=== PATIENT | female | born 1950 | race Caucasian/White ===

== ENCOUNTER → 2018-08-28 09:23 | Outpatient (CLI) | payer MEDICARE, MEDICAID, SELFPAY ==
[2018-08-28 09:53] LABS: Blood Urea Nitrogen 24 mg/dL (7-18); Creatinine,Serum 1.02 mg/dL (0.55-1.02); Estimated Glomerular Filt Rate 54 ml/min (>60); GFR (African American) 65 ML/MIN (>60)
== END ==
PROVIDERS: Visit Provider Internal Medicine Adolescent Medicine
DX: K86.89 Other specified diseases of pancreas (principal)
CPT/HCPCS: 36415; 74183; 82565; 84520; A9576

== ENCOUNTER → 2018-09-20 12:03 | Outpatient (CLI) | payer MEDICARE, MEDICAID, SELFPAY ==
[2018-09-20 15:35] LABS: Alanine Aminotransferase 31 U/L (12-78); Albumin Level 3.6 gm/dL (3.4-5.0); Albumin/Globulin Ratio 0.9 (1.1-1.8); Alkaline Phosphatase 99 U/L (46-116); Anion Gap 15.2 mEq/L (5-15); Aspartate Amino Transferase 17 U/L (15-37); Bilirubin,Total 0.5 mg/dL (0.2-1.0); Blood Urea Nitrogen 16 mg/dL (7-18); Calcium 9.3 mg/dL (8.5-10.1); Carbon Dioxide 29 mmol/L (21.0-32.0); Chloride 103 mmol/L (98-107); Creatinine,Serum 1.06 mg/dL (0.55-1.02); Estimated Glomerular Filt Rate 52 ml/min (>60); GFR (African American) 62 ML/MIN (>60); Globulin 3.9 gm/dl (1.3-3.2); Glucose 209 mg/dL (74-106); Potassium 4.2 mmoL/L (3.5-5.1); Sodium 143 mmol/L (136-145); Total Protein,Serum 7.5 gm/dL (6.4-8.2)
[2018-09-20 16:08] LABS: Basophils # 0.1 K/mm3 (0-0.2); Basophils % 0.5 % (0.1-2.0); Eosinophils # 0.2 K/mm3 (0.0-0.4); Eosinophils % 1.8 % (0.1-12.0); Hematocrit 43.6 % (37.0-47.0); Hemoglobin 13.5 g/dL (12.2-16.2); Lymphocytes # 2.6 K/mm3 (0.7-4.5); Lymphocytes % 23.4 % (10-50); Mean Corpuscular Hemoglobin 26.5 pg (27.0-31.2); Mean Corpuscular Volume 85.5 fl (81-99); Mean Platelet Volume 7.4 fl (7.4-10.4); Monocytes # 0.5 K/mm3 (0.1-1.0); Monocytes % 4.9 % (1.7-9.3); Neutrophils # 7.7 K/mm3 (1.8-7.8); Neutrophils % 69.6 % (37.0-80.0); Platelet Count 281 K/mm3 (142-424); Red Blood Count 5.11 M/mm3 (4.20-5.40); Red Cell Distribution Width 13.9 % (11.5-17.5); White Blood Count 11.1 K/mm3 (4.8-10.8)
== END ==
PROVIDERS: PCP Nurse Practitioner Family; Visit Provider Nurse Practitioner Family
DX: E11.9 Type 2 diabetes mellitus without complications (principal); I10 Essential (primary) hypertension; K92.1 Melena
CPT/HCPCS: 36415; 80053; 85025

== ENCOUNTER → 2019-01-15 09:50 | Outpatient (CLI) | payer MEDICARE, MEDICAID, SELFPAY ==
[2019-01-15 14:32] LABS: Basophils # 0.1 K/mm3 (0-0.2); Basophils % 0.7 % (0.1-2.0); Eosinophils # 0.3 K/mm3 (0.0-0.4); Eosinophils % 3.1 % (0.1-12.0); Hematocrit 45.3 % (37.0-47.0); Hemoglobin 13.7 g/dL (12.2-16.2); Lymphocytes # 2.5 K/mm3 (0.7-4.5); Lymphocytes % 28.2 % (10-50); Mean Corpuscular HGB Conc 30.4 g/dL (31.8-35.4); Mean Corpuscular Hemoglobin 26.4 pg (27.0-31.2); Monocytes # 0.6 K/mm3 (0.1-1.0); Monocytes % 6.9 % (1.7-9.3); Neutrophils # 5.5 K/mm3 (1.8-7.8); Neutrophils % 61.2 % (37.0-80.0); Platelet Count 273 K/mm3 (142-424); Red Blood Count 5.21 M/mm3 (4.20-5.40); Red Cell Distribution Width 14.2 % (11.5-17.5)
[2019-01-15 14:34] LABS: Hemoglobin A1C 8.1 % (0.0-7.0)
[2019-01-15 14:44] LABS: Alanine Aminotransferase 19 U/L (12-78); Albumin Level 3.5 gm/dL (3.4-5.0); Alkaline Phosphatase 79 U/L (46-116); Anion Gap 15.5 mEq/L (5-15); Aspartate Amino Transferase 19 U/L (15-37); Bilirubin,Total 0.4 mg/dL (0.2-1.0); Blood Urea Nitrogen 18 mg/dL (7-18); Calcium 8.9 mg/dL (8.5-10.1); Carbon Dioxide 27 mmol/L (21.0-32.0); Chloride 104 mmol/L (98-107); Creatinine,Serum 1.05 mg/dL (0.55-1.02); Estimated Glomerular Filt Rate 52 ml/min (>60); GFR (African American) 63 ML/MIN (>60); Globulin 3.6 gm/dl (1.3-3.2); Glucose 200 mg/dL (74-106); Potassium 4.5 mmoL/L (3.5-5.1); Sodium 142 mmol/L (136-145); Thyroid Stimulating Hormone 4.52 uIU/ml (0.358-3.740); Total Protein,Serum 7.1 gm/dL (6.4-8.2)
[2019-01-16 14:11] LABS: Vitamin B12 390 pg/mL (232-1245); Vitamin D 25 Hydroxy 18.6 ng/mL (30.0-100.0)
== END ==
PROVIDERS: PCP Nurse Practitioner Family; Visit Provider Nurse Practitioner Family
DX: E11.9 Type 2 diabetes mellitus without complications (principal); R53.83 Other fatigue
CPT/HCPCS: 36415; 80053; 82607; 82652; 83036; 84443; 85025

== ENCOUNTER 2020-01-29 14:00 | Outpatient (RCR) | payer MEDICARE, SELFPAY ==
--- NOTE | 2019-12-24 16:37 | HMH.PTOPEV ---
PT Outpatient Evaluation Rehab PT Outpatient Evaluation Start: 12/24/19 16:09 Freq: Status: Active Protocol: Document 12/24/19 16:09 TORREYAna Luisa (Rec: 12/24/19 16:36 PDESEROUX [id number]) Electronically Signed By Tani Concepcion, PT 12/24/19 16:09 Outpatient Therapy Subjective History Subjective History Pt. is a 69 year old female who presents to Outpatient PT clinic w/ complaints of subacute and constant LLE P! of insidious onset at the end of November 2019. Pt. reports symptoms were intermittent then, but have been constant the past 2 wks. Pt. describes the symptoms as knot-like that worsen w/ standing for a prolonged period of time. Pt. reports symptom relief w/ resting and movement. Pt. reports she is currently ambulating w/ a FWW b/c she is afraid she may fall d/t a misplaced step. Recent diagnostic imaging negative per pt. report. Pt. denies having injections for current pathology. Pt. RTMD in 2 months from 12/16/19 per report. PMH includes CVA 5 years ago, suffering from the 2nd stroke right now, and Type II Diabetes. Current medications include Aleve the provides symptom relief. Chief Complaint Pain,Spasms,Gives out/Unstable Symptom Type Ache,Other Symptoms Relieved By Rest/Positioning,Activity Symptoms Aggravated By Standing,Bending/Stooping Prior Functional Limitations None Current Functional Limitations Housework,Standing,Walking, Stairs,Balance,Bending/ Stooping Symptom Description Constant and Continuous Level of pain today (0-10) 2 Pain scale - at its best (0-10) 1 Pain scale - at its worst (0-10) 6 Lumbopelvic Eval Posture Thoracic Spine Posture Standing Position Increased Kyphosis Lumbar Spine Posture Standing Position Flattened Assistive device Assistive Devices Rolling / Wheeled Walker Gait Observation General Gait Pattern Observation Antalgic Gait,Decrease Weight
== END 2020-02-13 12:45 | disposition home or self-care (01) ==
LOC: PT.CARL 14:00
PROVIDERS: PCP Nurse Practitioner Family; Visit Provider Internal Medicine Adolescent Medicine
DX: I69.30 Unspecified sequelae of cerebral infarction (principal); M62.838 Other muscle spasm
CPT/HCPCS: 97110; 97140; 97163

== ENCOUNTER → 2020-05-25 09:53 | Outpatient (CLI) | payer MEDICARE, SELFPAY ==
[2020-05-25 13:57] LABS: Basophils # 0.1 K/mm3 (0-0.2); Basophils % 0.7 % (0.1-2.0); Eosinophils # 0.3 K/mm3 (0.0-0.4); Eosinophils % 2.4 % (0.1-12.0); Hematocrit 41.7 % (37.0-47.0); Hemoglobin 13.9 g/dL (12.2-16.2); Lymphocytes # 2.9 K/mm3 (0.7-4.5); Lymphocytes % 24.4 % (10-50); Mean Corpuscular HGB Conc 33.2 g/dL (31.8-35.4); Mean Corpuscular Hemoglobin 28.4 pg (27.0-31.2); Mean Corpuscular Volume 85.4 fl (81-99); Mean Platelet Volume 8.3 fl (7.4-10.4); Monocytes # 0.5 K/mm3 (0.1-1.0); Monocytes % 4.5 % (1.7-9.3); Platelet Count 280 K/mm3 (142-424); Red Blood Count 4.89 M/mm3 (4.20-5.40); Red Cell Distribution Width 13.3 % (11.5-17.5); White Blood Count 11.8 K/mm3 (4.8-10.8)
[2020-05-25 14:08] LABS: Alanine Aminotransferase 16 U/L (12-78); Albumin Level 3.8 g/dl (3.5-5.0); Albumin/Globulin Ratio 1.3 (1.1-1.8); Alkaline Phosphatase 94 U/L (38-126); Anion Gap 13.7 mEq/L (5-15); Aspartate Amino Transferase 23 U/L (14-36); Bilirubin,Total 0.3 mg/dl (0.2-1.3); Blood Urea Nitrogen 13 mg/dl (7-17); Calcium 9.2 mg/dl (8.4-10.2); Carbon Dioxide 27 mmol/L (22.0-30.0); Chloride 102 mmol/L (98-107); Chol/HDL Ratio 4.5 (1-3.5); Cholesterol 179 mg/dl (140-200); Estimated Glomerular Filt Rate 62 ml/min (>60); GFR (African American) 75 ML/MIN (>60); Glucose 236 mg/dl (74-100); HDL Cholesterol 40 mg/dl (40-60); Potassium 4.7 mmoL/L (3.5-5.1); Sodium 138 mmol/L (136-145); Total Protein,Serum 6.8 g/dl (6.3-8.2); Triglycerides 220 mg/dl (30-150); VLDL Cholesterol 44 mg/dL (0-40)
[2020-05-25 14:53] LABS: Hemoglobin A1C 9.4 % (4.0-6.0)
== END ==
PROVIDERS: Visit Provider Internal Medicine Adolescent Medicine
DX: E11.9 Type 2 diabetes mellitus without complications (principal); I10 Essential (primary) hypertension
CPT/HCPCS: 36415; 80053; 80061; 83036; 85025

== ENCOUNTER 2020-09-08 11:34 | Observation (INO) | payer MEDICARE, SELFPAY ==
[2020-09-08] VITALS (9 sets, daily range): BP systolic 96–136; BP diastolic 63–86; PULSE 83–97; RESP 16–18; TEMP 36.6–37.1; O2SAT 92–98; BMI 27.4; BMI 25.5
--- NOTE | 2020-09-08 11:55 | XR_ITS ---
PROCEDURE: XR HIP LT 2-3V W/PELVIS CLINICAL INDICATION: hip pain COMPARISON: CT CT ABD/PELVIS W IV AND ORAL CO from 08/08/2018 FINDINGS: No fracture or dislocation. No lytic or blastic change. Minimal osteoarthritic changes are present involving the hips and there is mild diffuse vascular calcification. IMPRESSION: Minimal osteoarthritic change of the hips Dictated by: Bari Cote MD 09/08/2020 13:28 Bari Cote MD in OV 09/08/2020 13:28
[2020-09-08 12:05] LABS: Chloride 105 mmol/L (98-107); Potassium 4.3 mmoL/L (3.5-5.1); Sodium 142 mmol/L (136-145)
[2020-09-08 12:07] LABS: Alanine Aminotransferase 16 U/L (12-78); Aspartate Amino Transferase 26 U/L (14-36); Blood Urea Nitrogen 17 mg/dl (7-17); Creatinine Clearance Estimated 60 mL/min (50-200); Estimated Glomerular Filt Rate 55 ml/min (>60); GFR (African American) 66 ML/MIN (>60)
[2020-09-08 12:08] LABS: Albumin/Globulin Ratio 1.2 (1.1-1.8); Alkaline Phosphatase 89 U/L (38-126); Anion Gap 11.3 mEq/L (5-15); Bilirubin,Total 0.5 mg/dl (0.2-1.3); Calcium 9.3 mg/dl (8.4-10.2); Carbon Dioxide 30 mmol/L (22.0-30.0); Globulin 3.3 g/dL (1.3-3.2); Glucose 101 mg/dl (74-100); Total Protein,Serum 7.3 g/dl (6.3-8.2)
[2020-09-08 13:21] LABS: Basophils # 0.1 K/mm3 (0-0.2); Basophils % 0.7 % (0.1-2.0); Eosinophils # 0.2 K/mm3 (0.0-0.4); Eosinophils % 1.8 % (0.1-12.0); Hemoglobin 14.7 g/dL (12.2-16.2); Lymphocytes % 27.4 % (10-50); Mean Corpuscular HGB Conc 31.3 g/dL (31.8-35.4); Mean Corpuscular Hemoglobin 26.9 pg (27.0-31.2); Mean Corpuscular Volume 85.9 fl (81-99); Mean Platelet Volume 7.6 fl (7.4-10.4); Monocytes # 0.6 K/mm3 (0.1-1.0); Monocytes % 5.8 % (1.7-9.3); Neutrophils % 64.3 % (37.0-80.0); Platelet Count 264 K/mm3 (142-424); Red Blood Count 5.47 M/mm3 (4.20-5.40); Red Cell Distribution Width 13.3 % (11.5-17.5)
--- NOTE | 2020-09-08 15:14 | PC.NURSE ---
paged dr Weaver
--- NOTE | 2020-09-08 15:55 | PC.NURSE ---
Dr Weaver returned call
[2020-09-08 16:27] LABS: Microscopic, Urine URINE MICROSCOPIC (MICROSCOPIC)
[2020-09-08 16:29] LABS: Appearance,Urine SL CLOUDY (Clear); Blood, Urine Negative (Negative); Color,Urine YELLOW (Yellow); Glucose,Urine (UA) Negative (Negative); Ketones,Urine Negative (Negative); Leukocyte Esterase,Urine Negative (Negative); Nitrate,Urine Negative (Negative); Protein,Urine Negative (Negative); Specific Gravity, Urine >= 1.030 (1.005-1.030)
[2020-09-08 16:37] LABS: Bilirubin,Urine 1+ (Negative)
[2020-09-08 16:38] LABS: Hyaline Casts,Urine Occasional #/lpf (0); Squamous Epithelial Cell,Urine Occasional #/hpf (0-5)
--- NOTE | 2020-09-08 16:45 | PC.NURSE ---
ATTEMPTED TO GET PT OUT OF TO AMBULATE WITH WALKER. PT TOOK APPROX 10 STEPS USING WALKER AND WITH ASSIST OF 2 STAFF. PT WAS UNABLE TO GINA WALKING. PT PLACE BACK IN STRETCHER. AWARE
--- NOTE | 2020-09-08 16:48 | PC.NURSE ---
Dr Weaver paged again
--- NOTE | 2020-09-08 17:11 | PC.NURSE ---
bed assignment requested, room 203. all staff notified
[2020-09-08 17:44] LABS: Coronavirus 19, PCR Not Detected (NotDetected); Influenza A, PCR Not Detected (NotDetected); Influenza B, PCR Not Detected (NotDetected)
--- NOTE | 2020-09-08 17:44 | PC.NURSE ---
spoke with pt at this time, notified him that pt will be admitted. Per boiling house hand request I asked pt to be please be here at the hospital at 8 am in the morning to speak the doctors during rounds r/t to making plan of care for pt.
--- NOTE | 2020-09-08 17:48 | HMH.EDGENADL ---
ED Disposition Clinical Impression: Physical debility Failure to thrive Qualifiers: Failure to thrive age range: in adult Qualified Code(s): R62.7 - Adult failure to thrive Disposition: Still a Patient Condition on Discharge: Fair - Critical Care Critical Care Time: No Attestation: On 09/08/20, the high probability of a clinically significant, sudden or life threatening deterioration of the following system(s) required my full and direct attention, intervention and personal management. The time I documented below is in addition to time spent performing reported procedures but includes the following listed in this critical care notation. Medical Decision Making - Medical Records Medical records reviewed: Yes: I reviewed the patient's medical records. - Marlon Inquiry Pt receiving controlled substance: No Vital Signs: 09/08/20 11:35 09/08/20 13:30 09/08/20 14:00 Temperature 98 F Temperature Source Oral Pulse Rate 83 89 Pulse Rate [Radial] 84 Respiratory Rate 16 16 18 Blood Pressure 96/66 L 102/68 L Blood Pressure [Right Arm] 108/63 L Blood Pressure Mean [Right Arm] 78 Blood Pressure Position [Right Arm] Sitting 02 Sat by Pulse Oximetry 98 95 93 L Oxygen Delivery Method Room Air 09/08/20 14:30 09/08/20 15:00 Temperature Temperature Source Pulse Rate 94 H 96 H Pulse Rate [Radial] Respiratory Rate 18 18 Blood Pressure 129/86 127/86 Blood Pressure [Right Arm] Blood Pressure Mean [Right Arm] Blood Pressure Position [Right Arm] 02 Sat by Pulse Oximetry 94 L 94 L Oxygen Delivery Method - Lab Data Lab Results 09/08/20 11:46: WBC 11.0 H, RBC 5.47 H, Hgb 14.7, Hct 47.0, MCV 85.9, MCH 26.9 L, MCHC 31.3 L, RDW 13.3, Plt Count 264, MPV 7.6, Neut % (Auto) 64.3, Lymph % (Auto) 27.4, [place] % (Auto) 5.8, Eos % (Auto) 1.8, Baso % (Auto) 0.7, Neut # (Auto) 7.0, Lymph # (Auto) 3.0, [place] # (Auto) 0.6, Eos # (Auto) 0.2, Baso # (Auto) 0.1 09/08/20 11:46: Sodium 142, Potassium 4.3, Chloride 105, Carbon Dioxide 30, Anion Gap 11.3, BUN 17, Creatinine 1.00, Estimated Creat Clear 60, Estimated GFR 55 L, Est GFR ( Amer) 66, Glucose 101 H, Calcium 9.3, Total Bilirubin 0.5, AST 26, ALT 16, Alkaline Phosphatase 89, Total Protein 7.3, Albumin 4.0, Globulin 3.3 H, Albumin/Globulin Ratio 1.2 09/08/20 16:25: Urine Color Yellow, Urine Appearance Sl cloudy, Urine pH 5.0, Ur Specific [place] >= 1.030, Urine Protein Negative, Urine Glucose (UA) Negative, Urine Ketones Negative, Urine Blood Negative, Urine Nitrate Negative, Urine Bilirubin 1+ A, Urine Urobilinogen 1.0, Ur Leukocyte Esterase Negative, Urine RBC None, Urine WBC None, Ur Squamous Epith Cells Occasional, Urine Bacteria None, Hyaline Casts Occasional Result diagrams: 09/08/20 11:46 09/08/20 11:46 Orders (Tests/Meds): ED MEDICATIONS Generic Name Dose Route Start Last Admin Trade Name Freq PRN Reason Stop Dose Admin Acetaminophen 650 mg 09/08/20 17:58 Acetaminophen 325mg Tab PO 10/08/20 17:57 Q4HP PRN Fever or Mild Pain Docusate Sodium 100 mg 09/08/20 17:58 Docusate Sodium 100 Mg Capsule PO 10/08/20 17:57 DAILY [facility] Enoxaparin Sodium 40 mg 09/08/20 17:58 Enoxaparin 40mg/0.4ml Syringe SQ 10/08/20 17:57 DAILY [facility] Insulin Human Lispro 0 unit 09/08/20 21:00 Humalog 100 Units/Ml 3ml Vial (Ssi) SQ 10/08/20 20:59 ACHS [facility] Protocol Ondansetron HCl 4 mg 09/08/20 17:58 Ondansetron 4mg/2ml Vial IV 10/08/20 17:57 Q8HP PRN Nausea Pantoprazole Sodium 40 mg 09/08/20 17:58 Pantoprazole 40mg Tablet PO 10/08/20 17:57 DAILY [facility] Discontinued Medications Generic Name Dose Route Start Last Admin Trade Name Freq PRN Reason Stop Dose Admin Belladonna Alkaloids 60 ml 09/08/20 12:12 09/08/20 12:35 Gi Cocktail 60ml Udc PO 09/08/20 12:13 60 ml ONCE ONE Administration ORDERS Category Date Time Status Basic Metabolic Panel AMLAB Lab 09/09/20 06:0
--- NOTE | 2020-09-08 17:49 | P.CONPHA_ITS ---
[facility] Pharmacy VTE Monitoring - Patient Demographics Admission date: 09/08/20 Report Date: 09/08/20 Time: 17:49 Allergies/Adverse Reactions: Patient Allergies No Known Allergies Allergy (Verified 09/08/20 11:36) Height: 1.63 m Weight: 72.575 kg - VTE Risk Labs: VTE Related Lab Results Hgb 14.7 g/dL (12.2-16.2) 09/08/20 11:46 Hct 47.0 % (37.0-47.0) 09/08/20 11:46 Plt Count 264 K/mm3 (142-424) 09/08/20 11:46 BUN 17 mg/dl (7-17) 09/08/20 11:46 Creatinine 1.00 mg/dl (0.52-1.04) 09/08/20 11:46 Estimated Creat Clear 60 mL/min (50-200) 09/08/20 11:46 Clinical Trial Participant: No - Prophylaxis VTE Prophylaxis Ordered?: Yes Types of VTE Prophylaxis: TEDS Knee High
--- NOTE | 2020-09-08 17:53 | HMH.PHAINT ---
HOME MEDICATION VERIFICATION COMPLETED USING LIST FROM [employer] JENNI
--- NOTE | 2020-09-08 18:43 | PC.NURSE ---
REPORT CALLED TO FLOOR
[2020-09-08 20:07] LABS: POC Glucose,Bedside 103 (70-110)
--- NOTE | 2020-09-09 03:25 | PC.NURSE ---
A&OX4. PT SLOW TO ANSWER QUESTIONS AND TALK. PT NOTCHED BLADE LOADER ARE EQUAL, ABLE TO FOLLOW COMMANDS WELL. PT HAS HAD NO C/O THUS FAR. HAS SLEPT T/O MAJORITY OF SHIFT. TOLERATING RA. VSS WILL CONTINUE TO MONITOR.
[2020-09-09 03:40] VITALS: BP 111/61; PULSE 90; RESP 16; TEMP 36.9; O2SAT 96
[2020-09-09 05:12] VITALS: BMI 25.0
[2020-09-09 06:55] LABS: Basophils # 0.1 K/mm3 (0-0.2); Basophils % 0.5 % (0.1-2.0); Eosinophils # 0.2 K/mm3 (0.0-0.4); Eosinophils % 1.4 % (0.1-12.0); Hematocrit 44.4 % (37.0-47.0); Hemoglobin 14.4 g/dL (12.2-16.2); Lymphocytes % 25.8 % (10-50); Mean Corpuscular HGB Conc 32.5 g/dL (31.8-35.4); Mean Corpuscular Volume 83.1 fl (81-99); Mean Platelet Volume 8.4 fl (7.4-10.4); Monocytes # 0.8 K/mm3 (0.1-1.0); Monocytes % 6.6 % (1.7-9.3); Neutrophils # 7.7 K/mm3 (1.8-7.8); Neutrophils % 65.8 % (37.0-80.0); Platelet Count 240 K/mm3 (142-424); Red Blood Count 5.34 M/mm3 (4.20-5.40); Red Cell Distribution Width 14.1 % (11.5-17.5); White Blood Count 11.7 K/mm3 (4.8-10.8)
[2020-09-09 07:12] LABS: Anion Gap 12.2 mEq/L (5-15); Blood Urea Nitrogen 22 mg/dl (7-17); Calcium 8.5 mg/dl (8.4-10.2); Carbon Dioxide 28 mmol/L (22.0-30.0); Chloride 104 mmol/L (98-107); Creatinine Clearance Estimated 56 mL/min (50-200); Estimated Glomerular Filt Rate 62 ml/min (>60); GFR (African American) 75 ML/MIN (>60); Glucose 90 mg/dl (74-100); Potassium 4.2 mmoL/L (3.5-5.1); Sodium 140 mmol/L (136-145)
--- NOTE | 2020-09-09 07:25 | HMH.HP ---
*Admission Date: 09/08/20 *Chief complaint: Inability to walk/functional decline *History of present illness: 70-year-old white female with some psychiatric issues including anxiety and depression, who lives with her in [facility], having recently migrated to [place] from [place]. They have had some ongoing issues with functional decline problems and she has been able to walk over the past several weeks, has been increasingly frustrated with her inability to care for self at home and brought her to the emergency department last night. He left the emergency department, and unable to find significant help/home health/disposition for her and she was admitted to hospital overnight for observation and probable placement in a skilled care facility. She reports this morning that she feels weak all over and that my does not want to take care of me anymore. [facility] History I have reviewed the patient's past medical history: Yes Medical History: Reports:: Cerebrovascular Accident, Diabetes Mellitus Type 2, Hyperlipidemia, Hypertension *Have you ever received a pneumonia vaccine?: No *Have you received a flu vaccine this season?: Yes - *Social History Last grade of school completed: Some college Smoking Status: Former smoker Alcohol Intake: never *Occupational Status:: retired Housing: house *Travel in the last 8 weeks: None Family Hx:: No significant family history Review of Systems - Review of Systems Review of systems:: pertinent systems reviewed and negative unless documented below Meds Home Medications Medication Instructions Recorded Confirmed Type Atorvastatin Calcium [Lipitor 40mg 40 mg PO HS 09/08/20 09/08/20 History Tab] Insulin Glargine,Hum.rec.anlog 47 units SQ 09/08/20 09/08/20 History [Lantus Solostar 100 Units/mL 3mL flexpen] Linagliptin [Tradjenta 5mg tablet] 5 mg PO DAILY 09/08/20 09/08/20 History Pantoprazole Sodium [Protonix 40mg 40 mg PO HS 09/08/20 09/08/20 History tablet] lisinopriL [Lisinopril] 10 mg PO DAILY 09/08/20 09/08/20 History ondansetron HCL [Zofran 4mg Tab*] 4 mg PO Q6HP PRN 09/08/20 09/08/20 History Allergies Allergy/AdvReac Type Severity Reaction Status Date / Time No Known Allergies Allergy Verified 09/08/20 11:36 Exam Vital signs and Labs for Last 24 Hours: Temp Pulse Resp BP Pulse Ox 98.5 F 90 16 111/61 96 09/09/20 03:40 09/09/20 03:40 09/09/20 03:40 09/09/20 03:40 09/09/20 03:40 Laboratory Results - last 24 hr 09/08/20 11:46: WBC 11.0 H, RBC 5.47 H, Hgb 14.7, Hct 47.0, MCV 85.9, MCH 26.9 L, MCHC 31.3 L, RDW 13.3, Plt Count 264, MPV 7.6, Neut % (Auto) 64.3, Lymph % (Auto) 27.4, [place] % (Auto) 5.8, Eos % (Auto) 1.8, Baso % (Auto) 0.7, Neut # (Auto) 7.0, Lymph # (Auto) 3.0, [place] # (Auto) 0.6, Eos # (Auto) 0.2, Baso # (Auto) 0.1 09/08/20 11:46: Sodium 142, Potassium 4.3, Chloride 105, Carbon Dioxide 30, Anion Gap 11.3, BUN 17, Creatinine 1.00, Estimated Creat Clear 60, Estimated GFR 55 L, Est GFR ( Amer) 66, Glucose 101 H, Calcium 9.3, Total Bilirubin 0.5, AST 26, ALT 16, Alkaline Phosphatase 89, Total Protein 7.3, Albumin 4.0, Globulin 3.3 H, Albumin/Globulin Ratio 1.2 09/08/20 16:25: Urine Color Yellow, Urine Appearance Sl cloudy, Urine pH 5.0, Ur Specific [place] >= 1.030, Urine Protein Negative, Urine Glucose (UA) Negative, Urine Ketones Negative, Urine Blood Negative, Urine Nitrate Negative, Urine Bilirubin 1+ A, Urine Urobilinogen 1.0, Ur Leukocyte Esterase Negative, Urine RBC None, Urine WBC None, Ur Squamous Epith Cells Occasional, Urine Bacteria None, Hyaline Casts Occasional 09/08/20 17:27: SARS-CoV-2 (PCR) Not detected, Influenza A Untype (PCR) Not detected, Influenza Type B (PCR) Not detected 09/08/20 19:56: POC Glucose 103 09/09/20 06:25: WBC 11.7 H, RBC 5.34, Hgb 14.4, Hct 44.4, MCV 83.1, MCH 27.0, MCHC 32.5, RDW 14.1, Plt Count 240, MPV 8.4, Neut % (Auto) 65.8, Lymph % (Auto) 25.8, [place] %
[2020-09-09 07:47] VITALS: BP 96/67; PULSE 91; RESP 16; TEMP 36.6; O2SAT 95
[2020-09-09 08:00] VITALS: PULSE 91; RESP 16; O2SAT 95
--- NOTE | 2020-09-09 10:11 | HMH.OTEV ---
OT Inpatient Evaluation Rehab OT IP Evaluation Start: 09/09/20 07:29 Freq: ONCE Status: Complete Protocol: Document 09/09/20 09:49 ALONDRA (Rec: 09/09/20 10:07 ALONDRA [id number]) Rehab OT IP Assessment Subjective History *Admission Date: 09/08/20 *Chief complaint: Inability to walk/functional decline *History of present illness: 70-year-old white female with some psychiatric issues including anxiety and depression, who lives with her in [facility], having recently migrated to [place] from [place]. They have had some ongoing issues with functional decline problems and she has been able to walk over the past several weeks, has been increasingly frustrated with her inability to care for self at home and brought her to the emergency department last night. He left the emergency department, and unable to find significant help/home health/ disposition for her and she was admitted to hospital overnight for observation and probable placement in a skilled care facility. She reports this morning that she feels weak all over and that my does not want to take care of me anymore. [facility] History I have reviewed the patient's past medical history: Yes Medical History: Reports:: Cerebrovascular Accident, Diabetes Mellitus Type 2, Hyperlipidemia, Hypertension Subjective I don't want to get in the chair. Its just not me. present during evaluation stating Patient has not ambulated within the past 2-3 weeks and he is unable to
--- NOTE | 2020-09-09 10:19 | SW/DCPLANNER ---
Addendum entered by Rosalinda Hernandes 09/10/20 11:40: PATIENT WAS NOT ABLE TO DISCHARGE LAST EVENING R/T INSURANCE ISSUES.. SHE WILL DISCHARGE THERE TODAY UNDER MEDICAID PENDING AND I HAVE NOTIFIED ...HE WILL MEET HER THERE TO ASSIST WITH PAPERWORK... Addendum entered by Rosalinda Hernandes 09/09/20 14:43: PATIENT ACCEPTED TO [facility] AND IS DISCHARGING THERE TODAY AND WILL GO THERE VIA AMBULANCE... Addendum entered by Rosalinda Hernandes 09/09/20 11:34: NO BEDS AVAILABLE AT [facility], THEY ARE NOT ACCEPTING PATIENTS AT THIS TIME... I SENT IT TO [facility] TO KEEP PATIENT CLOSE AND WAITING TO SEE IF THEY CAN ACCEPT HER... Original Note: MADE ROUNDS WITH DR FENG THIS MORNING ALONG WITH THE TEAM AND FELT THIS PATIENT NEEDS SHORT TERM REHAB PLACEMENT.. PATIENT PRESENTED IN WITH INABILITY TO WALK AND FUNCTIONAL DECLINE.. THEY RECENTLY MOVED TO [facility] FROM [place].. OT EVALUATION STATES SHE NEEDS PLACEMENT... I HAVE ATTEMPTED TO CALL THE BUT HAD TO LEAVE HIM A MESSAGE.. WAITING TO HEAR BACK TO WHERE HE WANTS ME TO LOOK FOR HER TO GO....
--- NOTE | 2020-09-09 10:58 | HMH.PTEV ---
Physical Therapy Evaluation Rehab PT IP Evaluation Start: 09/09/20 07:29 Freq: ONCE Status: Active Protocol: Document 09/09/20 10:50 RUPESHAVERY (Rec: 09/09/20 10:58 IHSANMARJAN [id number]) Subjective/History History History 70-year-old white female with some psychiatric issues including anxiety and depression, who lives with her in [facility], having recently migrated to [place] from [place]. They have had some ongoing issues with functional decline problems and she has been able to walk over the past several weeks Subjective Subjective Pt is alert to name, Bday, situation and year. Pt does not have any complaints of pain, but is slow w/ responses to questions. Pt reports at home she was ambulationg w/ walker and doing ADL's independently Rehab PT IP Eval Objective Appearance Patient Behavior Cooperative,Patient Baseline Patient Orientation Name,Birthday,Year,Situation Difficulty following instructions mild Speech Pattern Delayed,Soft-Spoken Ambulation Patient Able to Ambulate No Balance Ability to Arise Unable Sitting Balance Leans or slides in chair Standing Balance Unsteady Dynamic Sitting Balance Ability Poor Dynamic Standing Balance Ability Poor Transfers Bed Transfer Ability Contact Guard/Hand Hold Sit to Stand Bed Transfer Ability Maximum x 1 (75% assist) ROM RUE PT ROM Status ABN Abnormal ROM Comment Slouched posture in seating limits shoulder ROM LUE PT ROM Status ABN Abnormal ROM Comment Slouched posture in seating limits shoulder ROM RLE PT ROM Status WFL LLE PT ROM Status WFL Rehab PT IP prob,goals,plan Problems Date of Evaluation: 09/09/20 PT IP Problems Bed Mobility,Transfers,Gait, Balance,Self care,Safety Rehab Potential Rehab Potential Fair Equipment Needs Assistive Devices Rolling / Wheeled Walker Plan PT Intervention Plan Bed Mobility,Transfers,Gait, Balance,Self care,Safety,
[2020-09-09 11:12] LABS: POC Glucose,Bedside 174 (70-110)
[2020-09-09 12:20] VITALS: BMI 25.0
--- NOTE | 2020-09-09 14:02 | HMH.DCSUM ---
General - General Admission date:: 09/08/20 Discharge date: 09/09/20 HPI HPI: 70-year-old white female with some psychiatric issues including anxiety and depression, who lives with her in [facility], having recently migrated to [place] from [place]. They have had some ongoing issues with functional decline problems and she has been able to walk over the past several weeks, has been increasingly frustrated with her inability to care for self at home and brought her to the emergency department last night. He left the emergency department, and unable to find significant help/home health/disposition for her and she was admitted to hospital overnight for observation and probable placement in a skilled care facility. She reports this morning that she feels weak all over and that my does not want to take care of me anymore. Hospital Course Hospital Course: Patient was admitted, no metabolic derangements were found, x-ray testing was unremarkable. This morning patient continued to be very weak. PT and OT evaluated patient felt that she would be a good candidate for skilled rehab and possible long-term care placement. She was accepted in transfer at the [facility]. Please note that she will need PT/OT/speech therapy evaluation. Please note that she will need a CBC and BMP in 2 weeks. Objective Vital signs: Temp Pulse Resp BP Pulse Ox 97.9 F 91 H 16 96/67 L 95 09/09/20 07:47 09/09/20 08:00 09/09/20 08:00 09/09/20 07:47 09/09/20 08:00 no acute distress - *Routine HEENT Exam Head: Present: normocephalic Eye: Present: EOMI, PERRL ENT: Present: mucous membranes moist Comments: Does have fairly significant facial hirsutism - *Routine Neck Exam Present: supple - *Routine Respiratory Exam Present: CTA bilaterally - *Routine Cardiovascular Exam Present: RRR - *Routine Abdominal Exam Present: soft, normoactive bowel sounds. Absent: tenderness - *Routine Extremities Exam Absent: cyanosis, clubbing, edema - *Routine Skin Exam Present: warm. Absent: rash - *Routine Neurological Exam Present: alert Minimal left-sided weakness. Apparently sequela of old stroke. Oriented x2. Unusual personality affect with some tangential thinking. Does not seem to be afflicted with external hallucinatory activity however. - Detailed Eye Exam Eyelids: Bilateral normal inspection Results Labs on day of discharge: Labs from last 24 hours 09/09/20 09/09/20 09/09/20 10:59 06:25 06:25 WBC 11.7 H RBC 5.34 Hgb 14.4 Hct 44.4 MCV 83.1 MCH 27.0 MCHC 32.5 RDW 14.1 Plt Count 240 MPV 8.4 Neut % (Auto) 65.8 Lymph % (Auto) 25.8 [place] % (Auto) 6.6 Eos % (Auto) 1.4 Baso % (Auto) 0.5 Neut # (Auto) 7.7 Lymph # (Auto) 3.0 [place] # (Auto) 0.8 Eos # (Auto) 0.2 Baso # (Auto) 0.1 Sodium 140 Potassium 4.2 Chloride 104 Carbon Dioxide 28 Anion Gap 12.2 BUN 22 H D Creatinine 0.90 Estimated Creat Clear 56 Estimated GFR 62 Est GFR ( Amer) 75 Glucose 90 POC Glucose 174 H Calcium 8.5 Urine Color Urine Appearance Urine pH Ur Specific [place] Urine Protein Urine Glucose (UA) Urine Ketones Urine Blood Urine Nitrate Urine Bilirubin Urine Urobilinogen Ur Leukocyte Esterase Urine RBC Urine WBC Ur Squamous Epith Cells Urine Bacteria Hyaline Casts SARS-CoV-2 (PCR) Influenza A Untype (PCR) Influenza Type B (PCR) 09/08/20 09/08/20 09/08/20 19:56 17:27 16:25 WBC RBC Hgb Hct MCV MCH MCHC RDW Plt Count MPV Neut % (Auto) Lymph % (Auto) [place] % (Auto) Eos % (Auto) Baso % (Auto) Neut # (Auto) Lymph # (Auto) [place] # (Auto) Eos # (Auto) Baso # (Auto) Sodium Potassium Chloride Carbon Dioxide An
--- NOTE | 2020-09-09 15:28 | PC.NURSE ---
Pt has been pleasant and cooperative this shift. A&O X4. No complaints of pain. Pt is on room air with sats. >90%. Lungs CTA. No edema noted. Skin is C/D/I. Pt is tolerating a diabetic diet well and eats about 75% of all meals. Pt ambulates with assistance X1 and uses a walker. Pt worked with PT and sat up in the recliner for several hours. Abdomen is soft and non-tender. Pt is incontinent and uses a brief. Urine is clear and yellow. 1 large, brown, soft BM today. VSS. Call light within reach. Will continue to monitor.
[2020-09-09 16:00] VITALS: BP 104/78; PULSE 88; RESP 16; TEMP 36.8; O2SAT 94
[2020-09-09 17:06] LABS: POC Glucose,Bedside 126 (70-110)
[2020-09-09 20:00] VITALS: BP 115/69; PULSE 86; RESP 16; TEMP 36.8; O2SAT 97
[2020-09-09 22:39] LABS: POC Glucose,Bedside 145 (70-110)
[2020-09-10 00:47] LABS: POC Glucose,Bedside 82 (70-110)
[2020-09-10 04:00] VITALS: BP 109/68; PULSE 81; RESP 16; TEMP 36.6; O2SAT 97
[2020-09-10 05:03] VITALS: BMI 25.0
--- NOTE | 2020-09-10 05:46 | PC.NURSE ---
Patient had an uneventful night; no s/s of acute distress noted at this time. Bed at lowest level for safety, call light within reach; will continue to monitor.
[2020-09-10 06:06] LABS: POC Glucose,Bedside 105 (70-110)
[2020-09-10 07:41] VITALS: BP 132/77; PULSE 79; RESP 19; TEMP 36.5; O2SAT 95
--- NOTE | 2020-09-10 07:50 | P.PN_ITS ---
Internal Medicine - PN: Subj *Date: 09/10/20 *Time: 07:50 Interval history: Patient was not able to be transferred yesterday because of insurance issues. This morning she has no changes in her condition. We are awaiting insurance clearance from residential for transfer for long-term care. Exam Vital signs and Labs for Last 24 Hours: Temp Pulse Resp BP Pulse Ox 97.7 F 79 19 132/77 95 09/10/20 07:41 09/10/20 07:41 09/10/20 07:41 09/10/20 07:41 09/10/20 07:41 Laboratory Results - last 24 hr 09/09/20 05:09: POC Glucose 82 09/09/20 10:59: POC Glucose 174 H 09/09/20 16:23: POC Glucose 126 H 09/09/20 21:34: POC Glucose 145 H 09/10/20 05:58: POC Glucose 105 I & O for Last 24 hours: Intake & Output 09/07/20 09/08/20 09/09/20 09/10/20 11:59 11:59 11:59 11:59 Intake Total 360 / 360 1080 / 1080 Balance 360 / 360 1080 / 1080 Weight 160 lb 150 lb 9 oz 150 lb Narrative: Alert, pleasant, talkative, significant tangential thinking. Eating well. Cardiopulmonary assessment unremarkable. Neurologic exam unchanged. Abdomen soft. Assessment and Plan (1) Diabetes type 2, controlled Status: Chronic Category: Medical Code(s): E11.9 - Type 2 diabetes mellitus without complications (2) Sequela, post-stroke Status: Chronic Category: Medical Code(s): I69.30 - Unspecified sequelae of cerebral infarction (3) Failure to thrive Status: Acute Qualifiers: Failure to thrive age range: in adult Qualified Code(s): R62.7 - Adult failure to thrive Category: Medical (4) Physical debility Status: Acute Category: Medical Code(s): R53.81 - Other malaise
[2020-09-10 08:00] VITALS: PULSE 79; RESP 19; O2SAT 95
[2020-09-10 11:58] LABS: POC Glucose,Bedside 147 (70-110)
== END 2020-09-10 13:16 ==
LOC: ER 11:39 → 2ND 17:54
PROVIDERS: Admitting Provider Internal Medicine Adolescent Medicine; Emergency Provider Student in an Organized Health Care Education/Training Program; PCP Internal Medicine Adolescent Medicine; Visit Provider Internal Medicine Adolescent Medicine
DX: R62.7 Adult failure to thrive (principal); E11.9 Type 2 diabetes mellitus without complications; Z79.4 Long term (current) use of insulin; Z20.822 Contact with and (suspected) exposure to COVID-19; Z79.899 Other long term (current) drug therapy; Z74.2 Need for assistance at home and no other household member able to render care; I69.354 Hemiplegia and hemiparesis following cerebral infarction affecting left non-dominant side
CPT/HCPCS: G0378; 73502; 80048; 80053; 81001; 82962; 85025; 97116; 97162; 97165; 97530; 99284; U0003

== ENCOUNTER 2021-08-14 10:35 | Emergency (ER) | payer MEDICARE, SELFPAY ==
[2021-08-14 10:36] VITALS: BP 166/75; PULSE 92; RESP 20; TEMP 36.8; O2SAT 98; BMI 28.3
[2021-08-14 10:50] LABS: POC Glucose,Bedside 204 (70-110)
--- NOTE | 2021-08-14 10:52 | [facility].EDGENADL ---
ED Disposition Clinical Impression: Encounter for medication refill Disposition: Home, Self-Care Condition on Discharge: Good Additional Instructions: Continue medications as previously instructed. You were given refills for Soliqua and needles, atorvastatin. Prescriptions: Atorvastatin Calcium [Lipitor 40mg Tab] 40 mg PO HS #90 tab Transmission Status: Sent to [facility] Insulin Glargine/Lixisenatide [Soliqua 100 Unit-33 Mcg/ml Pen] 45 units SQ DAILY #15 each Transmission Status: Sent to [facility] Pen Needle, Diabetic [Unifine Pentips Plus] 1 each MC DAILY #100 each Transmission Status: Sent to [facility] Referrals: Jordan Weaver MD [Primary Care Provider] - - Critical Care Critical Care Time: No Attestation: On , the high probability of a clinically significant, sudden or life threatening deterioration of the following system(s) required my full and direct attention, intervention and personal management. The time I documented below is in addition to time spent performing reported procedures but includes the following listed in this critical care notation. Medical Decision Making - Marlon Inquiry Pt receiving controlled substance: No Vital Signs: 08/14/21 10:36 Temperature 98.2 F Temperature Source Oral Pulse Rate [Radial] 92 H Respiratory Rate 20 Blood Pressure [Right Arm] 166/75 H Blood Pressure Mean [Right Arm] 105 Blood Pressure Position [Right Arm] Sitting 02 Sat by Pulse Oximetry 98 Oxygen Delivery Method Room Air - Lab Data Lab Results 08/14/21 10:43: POC Glucose 204 H Medical Decision Narrative: [facility] contacted. They state that the patient needs a refill on Soliqua and associated needles. She also needs a refill on Lipitor. She has an adequate number of refills of her lisinopril. General Adult HPI - General Chief complaint: Recheck/Abnormal Lab/Rx Stated complaint: elevated glucose Time Seen by Provider: 08/14/21 10:42 Mode of Arrival: Ambulatory Limitations: No Limitations Description of Symptoms (Recalled from ER Triage Doc. by RN): pt states out of insulin last used today. pt and caregiver state they have been calling dr weaver x3 days for refill but he has not returned calls or sent script to pharmacy. pt denies any c/o - History of Present Illness HPI narrative: Patient states there is nothing wrong with her but she has a problem with your type, doctors . She says that her primary care provider, Dr. Weaver, is leaving the practice and has left no affording medications. She has run out of her insulin today. She says they have been calling Dr. Weaver's office for the past 3 days to try and get a new prescription but have not received any return calls and nothing has been transmitted to the pharmacy for refills. states that she is on Soliqua 45 units/day. She was only able to use a partial dose this morning. He is uncertain whether her other medications have refills on them. She is also on lisinopril. Both she and her states that she is not currently ill, she just needs her medications refilled. - Related Data Home Medications Medication Instructions Recorded Confirmed Atorvastatin Calcium [Lipitor 40mg 40 mg PO HS 09/08/20 09/08/20 Tab] Insulin Glargine,Hum.rec.anlog 47 units SQ HS 09/08/20 09/08/20 [Lantus Solostar 100 Units/mL 3mL flexpen] Linagliptin [Tradjenta 5mg tablet] 5 mg PO DAILY 09/08/20 09/08/20 Pantoprazole Sodium [Protonix 40mg 40 mg PO HS 09/08/20 09/08/20 tablet] lisinopriL [Lisinopril] 10 mg PO DAILY 09/08/20 09/08/20 ondansetron HCL [Zofran 4mg Tab*] 4 mg PO Q6HP PRN 09/08/20 09/08/20 Previous Rx's Medication Instructions Recorded Atorvastatin Calcium [Lipitor 40mg 40 mg PO HS #90 tab 08/14/21 Tab] Insulin Glargine/Lixisenatide 45 units SQ DAILY #15 each 08/14/21 [Soliqua 100 Unit-33 Mcg/ml Pen] Pen Needle, Diabetic [Unifine 1 each MC DAILY #100 ea
[2021-08-14 11:13] VITALS: BP 159/74; PULSE 78; RESP 16; TEMP 36.6; O2SAT 98
== END 2021-08-14 11:32 | disposition home or self-care (01) ==
LOC: ER 11:07
PROVIDERS: Emergency Provider Emergency Medicine; PCP Internal Medicine Adolescent Medicine
DX: E11.9 Type 2 diabetes mellitus without complications (principal); Z76.0 Encounter for issue of repeat prescription; Z79.4 Long term (current) use of insulin; Z79.899 Other long term (current) drug therapy; E78.5 Hyperlipidemia, unspecified; I10 Essential (primary) hypertension; Z86.73 Personal history of transient ischemic attack (TIA), and cerebral infarction without residual deficits
CPT/HCPCS: 82962; 99283

== ENCOUNTER → 2022-01-12 15:15 | Outpatient (CLI) | payer MEDICARE, SELFPAY ==
[2022-01-12 19:33] LABS: Hemoglobin A1C 7.7 % (4.0-6.0)
== END ==
PROVIDERS: PCP Family Medicine; Visit Provider Family Medicine
DX: E11.9 Type 2 diabetes mellitus without complications (principal); Z79.4 Long term (current) use of insulin
CPT/HCPCS: 83036

== ENCOUNTER → 2022-04-12 23:15 | Outpatient (CLI) | payer MEDICARE, SELFPAY ==
[2022-04-12 17:46] LABS: Hemoglobin A1C 6.4 % (4.0-6.0)
[2022-04-12 17:48] LABS: Creatinine,Urine Random 186 mg/dL (Not Estab.)
[2022-04-12 17:51] LABS: Microalbumin/Creatinine Ratio 10.5
== END ==
PROVIDERS: PCP Family Medicine; Visit Provider Family Medicine
DX: E11.9 Type 2 diabetes mellitus without complications (principal); Z79.4 Long term (current) use of insulin
CPT/HCPCS: 82043; 82570; 83036

== ENCOUNTER → 2022-12-07 10:56 | Outpatient (CLI) | payer MEDICARE, SELFPAY ==
[2022-12-06 16:40] LABS: Basophils # 0.1 K/mm3 (0-0.2); Basophils % 0.5 % (0.1-2.0); Eosinophils # 0.2 K/mm3 (0.0-0.4); Eosinophils % 1.4 % (0.1-12.0); Hematocrit 41.7 % (37.0-47.0); Hemoglobin 14.1 g/dL (12.2-16.2); Lymphocytes # 2.5 K/mm3 (0.7-4.5); Lymphocytes % 21.7 % (10-50); Mean Corpuscular HGB Conc 33.8 g/dL (31.8-35.4); Mean Corpuscular Hemoglobin 30.7 pg (27.0-31.2); Mean Corpuscular Volume 90.8 fl (81-99); Mean Platelet Volume 9.5 fl (7.4-10.4); Monocytes # 0.9 K/mm3 (0.1-1.0); Monocytes % 7.4 % (1.7-9.3); Platelet Count 261 K/mm3 (142-424); Red Blood Count 4.59 M/mm3 (4.20-5.40); Red Cell Distribution Width 13.3 % (11.5-17.5); White Blood Count 11.5 K/mm3 (4.8-10.8)
[2022-12-06 16:44] LABS: Alanine Aminotransferase 37 U/L (12-78); Albumin Level 4.5 g/dl (3.5-5.0); Albumin/Globulin Ratio 1.7 (1.1-1.8); Alkaline Phosphatase 71 U/L (38-126); Anion Gap 20.7 mEq/L (5-15); Aspartate Amino Transferase 40 U/L (14-36); Bilirubin,Total 0.6 mg/dl (0.2-1.3); Blood Urea Nitrogen 14 mg/dl (7-17); Calcium 9.6 mg/dl (8.4-10.2); Carbon Dioxide 22 mmol/L (22.0-30.0); Chloride 97 mmol/L (98-107); Chol/HDL Ratio 2.8 (1-3.5); Cholesterol 125 mg/dl (140-200); Estimated Glomerular Filt Rate 71 ml/min (>60); GFR (African American) 85 ML/MIN (>60); Globulin 2.6 g/dL (1.3-3.2); Glucose 139 mg/dl (74-100); HDL Cholesterol 45 mg/dl (40-60); Potassium 4.7 mmoL/L (3.5-5.1); Sodium 135 mmol/L (136-145); Total Protein,Serum 7.1 g/dl (6.3-8.2); Triglycerides 170 mg/dl (30-150); VLDL Cholesterol 34 mg/dL (0-40)
[2022-12-06 16:55] LABS: Direct LDL Cholesterol 59.36 mg/dL (100-129)
[2022-12-06 17:03] LABS: Hemoglobin A1C 6.3 % (4.0-6.0)
[2022-12-06 17:15] LABS: Thyroid Stimulating Hormone 1.22 uIU/mL (0.465-4.68)
== END ==
PROVIDERS: PCP Family Medicine; Visit Provider Nurse Practitioner Family
DX: E11.9 Type 2 diabetes mellitus without complications (principal); E78.5 Hyperlipidemia, unspecified; I10 Essential (primary) hypertension; R62.7 Adult failure to thrive; Z79.84 Long term (current) use of oral hypoglycemic drugs; Z87.891 Personal history of nicotine dependence
CPT/HCPCS: 80053; 80061; 83036; 84443; 85025

== ENCOUNTER → 2023-01-02 16:00 | Outpatient (CLI) | payer MEDICARE, SELFPAY ==
[2023-01-02 17:08] LABS: Alanine Aminotransferase 29 U/L (12-78); Albumin Level 4.2 g/dl (3.5-5.0); Albumin/Globulin Ratio 1.6 (1.1-1.8); Alkaline Phosphatase 74 U/L (38-126); Anion Gap 17.2 mEq/L (5-15); Aspartate Amino Transferase 37 U/L (14-36); Bilirubin,Total 0.5 mg/dl (0.2-1.3); Blood Urea Nitrogen 18 mg/dl (7-17); Calcium 9.4 mg/dl (8.4-10.2); Carbon Dioxide 25 mmol/L (22.0-30.0); Chloride 103 mmol/L (98-107); Estimated Glomerular Filt Rate 62 ml/min (>60); GFR (African American) 74 ML/MIN (>60); Globulin 2.7 g/dL (1.3-3.2); Glucose 171 mg/dl (74-100); Potassium 5.2 mmoL/L (3.5-5.1); Sodium 140 mmol/L (136-145); Total Protein,Serum 6.9 g/dl (6.3-8.2)
[2023-01-02 17:16] LABS: Basophils # 0.1 K/mm3 (0-0.2); Basophils % 0.6 % (0.1-2.0); Eosinophils # 0.2 K/mm3 (0.0-0.4); Eosinophils % 1.7 % (0.1-12.0); Hematocrit 42.2 % (37.0-47.0); Hemoglobin 13.8 g/dL (12.2-16.2); Lymphocytes # 2.8 K/mm3 (0.7-4.5); Mean Corpuscular HGB Conc 32.8 g/dL (31.8-35.4); Mean Corpuscular Hemoglobin 29.8 pg (27.0-31.2); Mean Corpuscular Volume 90.7 fl (81-99); Monocytes # 0.9 K/mm3 (0.1-1.0); Monocytes % 7.6 % (1.7-9.3); Neutrophils # 7.6 K/mm3 (1.8-7.8); Neutrophils % 66.1 % (37.0-80.0); Platelet Count 241 K/mm3 (142-424); Red Blood Count 4.65 M/mm3 (4.20-5.40); Red Cell Distribution Width 13.2 % (11.5-17.5); White Blood Count 11.4 K/mm3 (4.8-10.8)
== END ==
PROVIDERS: PCP Family Medicine; Visit Provider Family Medicine
DX: T88.7XXA Unspecified adverse effect of drug or medicament, initial encounter (principal)
CPT/HCPCS: 36415; 80053; 85025